=== PATIENT | female | born 1950 | race Caucasian/White ===

== ENCOUNTER 2022-12-23 06:31 | Emergency (ER) | payer MEDICARE ==
[2022-12-23] MEDS ORDERED: Metoclopramide 10 MG/2 ML SDV IVPUSH ONE ×2 (07:16→07:17)
[2022-12-23] MEDS ORDERED: HYDROmorphone 0.5 MG/0.5 ML Syringe IVPUSH ONE (07:17)
[2022-12-23] MEDS ORDERED: Dextrose 5%-0.9% NaCl 1,000 ML IV SCH (07:30)
[2022-12-23 08:23] LABS: CORONAVIRUS COVID-19 NAA NEGATIVE (NEGATIVE)
[2022-12-23 08:35] LABS: ESTIMATED GFR 91 mL/min (>60)
== END 2022-12-23 10:31 | disposition home or self-care (01) ==
LOC: JD.ED 06:31
DX: R10.12 Left upper quadrant pain (principal); R11.2 Nausea with vomiting, unspecified; R19.7 Diarrhea, unspecified; E78.00 Pure hypercholesterolemia, unspecified; I10 Essential (primary) hypertension; E11.9 Type 2 diabetes mellitus without complications; Z88.0 Allergy status to penicillin; Z88.2 Allergy status to sulfonamides; Z79.899 Other long term (current) drug therapy; Z79.84 Long term (current) use of oral hypoglycemic drugs; Z20.822 Contact with and (suspected) exposure to COVID-19
CPT/HCPCS: 0241U; 36415; 71045; 71045-26; 74018; 74018-26; 80053; 83036; 83690; 85025; 86140; 93005; 93010; 96360; 99284; 99285-25; J7042

== ENCOUNTER 2024-06-15 10:29 | Day surgery (SDC) | payer MEDICARE ==
[~2024-06-15 10:29] MED LIST: Bupivacaine 0.5% 10 ML SDV ONE; Lidocaine 1% 5 ML VIAL ONE; Midazolam 1 MG/ML 2 ML SDV ONE; Propofol 200 MG/20 ML SDV ONE; Sodium Chloride 0.9% 10 ML Syringe FLUSH PRN; Sodium Chloride 0.9% 10 ML Syringe FLUSH SCH; fentaNYL 100 MCG/2 ML SDV ONE
[2024-06-15] MEDS: Albuterol 0.083% 2.5 MG/3 ML Neb Soln NEB SCH (10:59)
[2024-06-15] MEDS: Lactated Ringers 1,000 ML IV SCH (11:18)
[2024-06-15] MEDS: Lidocaine 1% with EPINEPHrine 1:100,000 20 ML MDV ONE (11:43)
[2024-06-15] MEDS: Bupivacaine 0.5% 10 ML SDV ONE (11:43)
== END 2024-06-15 13:30 | disposition home or self-care (01) ==
LOC: JD.SDS 10:29
PROVIDERS: ATTEND Surgery
DX: C44.319 Basal cell carcinoma of skin of other parts of face (principal); I10 Essential (primary) hypertension; E11.9 Type 2 diabetes mellitus without complications; E78.00 Pure hypercholesterolemia, unspecified; F17.210 Nicotine dependence, cigarettes, uncomplicated; Z79.899 Other long term (current) drug therapy; Z88.0 Allergy status to penicillin; Z88.2 Allergy status to sulfonamides
CPT/HCPCS: 11643; J0665; J2250; J2704; J3010; J7120; 00300; 99100; J3490; J7620-GY